=== PATIENT | male | born 1995 | race Caucasian/White ===

== ENCOUNTER 2024-12-09 20:51 | Emergency (ER) | payer OTHER, SELFPAY ==
[2024-12-09 21:00] VITALS: BP 124/79
[2024-12-09 23:47] VITALS: BP 136/88; BMI 27.8
[2024-12-10] VITALS: BP 126/81
--- NOTE | 2024-12-10 00:50 | ED.GENMED ---
History of Present Illness
General
Chief Complaint: Anxiety
Source: patient
Exam Limitations: none
Time Seen by Provider: 12/09/24 23:47
Nursing documentation reviewed up to this point in time: agreed with
History of Present Illness
History of Present Illness:
Patient is a 29-year-old male with past medical history of anxiety on metoprolol Lexapro and alprazolam as needed presents to the ER for evaluation. He started with flulike symptoms 1 day ago and took a cold medicine prior to arrival and suddenly
felt brain fog and trouble concentrating. He feels fine now and has no complaints other than flulike symptoms. He denies any chest pain shortness of breath.
Review of Systems
Review of Systems
Allergies reviewed?: Yes
All Other Systems: ROS reviewed and negative except as documented in HPI and ROS
Constitutional: Reports fever, fatigue and chills
EENT: Reports no symptoms
Respiratory: Reports cough; Denies trouble breathing
ABD/GI: Reports no symptoms
: Reports no symptoms
Musculoskeletal: Reports no symptoms
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
Psychiatric: Reports no symptoms
Phy Exam
General Physical Exam
General Presentation: no apparent distress
General age: appears stated age
General Skin: warm and dry
General Habitus: normal
General Mental: alert
General Hydration: appears well hydrated
Cardiovascular Exam
Cardiovascular Exam: regular rate/rhythm, no murmur and normal peripheral pulses
Pulmonary Exam
Pulmonary Exam: lungs clear and no respiratory distress
Neurological Exam
Neurological Exam: alert and oriented x3
Musculoskeletal Exam
Musculoskeletal Exam: full ROM
Skin Exam
Skin Exam: normal color and warm/dry
Psychiatric Exam
Psychiatric Exam: other (Minimally anxious)
Course
Orders/Labs/Results
Orders:
Orders
12/10/24 01:01
COVID-19 Antigen Urgent
Source: Nasal Swab
Influenza A+B Rapid Molecular Urgent
ALAN Source: Nasal Swab
Specimen Description:
Vital Signs
Initial and Last Documented VS:
Initial Vital Signs
Temp Pulse Resp BP Pulse Ox
98.5 F 105 16 124/79 98
12/09/24 21:00 12/09/24 21:00 12/09/24 21:00 12/09/24 21:00 12/09/24 21:00
Last Documented Vital Signs
Temp Pulse Resp BP Pulse Ox
98.5 F 105 16 122/86 96
12/09/24 21:00 12/09/24 21:00 12/09/24 21:00 12/10/24 01:00 12/10/24 01:30
MDM/Problems Addressed
Differential Diagnosis Includes:
not limited to: anxiety episode resolved, covid, influenza
MDM/Problems Addressed:
Patient is a 29-year-old male who presented with flulike symptoms however had an anxiety panic attack after taking a cold medicine prior to arrival. He described this as feeling brain fog and having trouble concentrating. His symptoms of this has
since resolved. He does still have body aches and flulike symptoms. He is found to be influenza positive here in the ER however no acute distress temp is 98.5 minimally tachycardic minimally anxious however lungs are clear not hypoxic and well
appearing.
Stable for d/c home
*Pulse Oximetry
Patient hypoxic: no
*Critical Care Note
Total Time (30-74mins, 75-104mins- exclusive of procedures): Not Applicable
ED Attending Note
-
Portions of this chart may have been created with voice recognition software.� Occasional wrong word or��sound alike� substitutions may have occurred due to the inherent limitations of voice recognition software.
Discharge Plan
Departure
Patient Disposition: Home (Routine Discharge)
Date of Disposition: 12/10/24
Time of Disposition: 01:28
Patient with high blood pressure during this ER visit?: No
Condition: Fair
Covid-19: Not Applicable
Discharge Problem:
Anxiety, Influenza A
Instructions: Anxiety, Adult (DC), Flu in adults - Discharge instructions
Referrals:
PRIVATE,PHYSICIAN [Family Provider] -
Activity Restrictions/Additional Instructions:
As discussed you are found to have influenza A. Be sure to get plenty of rest. Drink plenty of fluids. You may alternate between Tylenol and ibuprofen. Follow-up with your family doctor the next several days and return if any worsening of
symptoms.
Interventions
Interventions:
*Risk Screen - Suicide Last Done: 12/09/24 21:00
*General Assessment Last Done: 12/09/24 21:00
*Neglect/Abuse Screening Last Done: 12/09/24 21:00
ED- Fall Risk Assessment Last Done: 12/09/24 23:47
*ED COVID-19 Vaccine History Last Done: 12/09/24 21:00
*Nursing Disposition Last Done: 12/10/24 01:35
ED-Psychological Assessment Last Done: 12/09/24 23:47
Discharge Date and Time
Discharge Date/Time: 12/10/24 01:36
Print Language: [id number]
[2024-12-10 01:00] VITALS: BP 122/86
[2024-12-10 01:19] LABS: COVID-19 Antigen Negative (Negative)
== END 2024-12-10 01:36 | disposition home or self-care (01) ==
LOC: EMR 20:51
PROVIDERS: Nurse Practitioner; EMERGENCY PHYSICIAN Student in an Organized Health Care Education/Training Program
DX: J10.1 Influenza due to other identified influenza virus with other respiratory manifestations (principal); F41.9 Anxiety disorder, unspecified; Z79.899 Other long term (current) drug therapy
CPT/HCPCS: 99283; 87502; 87811